=== PATIENT | female | born 1940 | race Caucasian/White ===

== ENCOUNTER 2018-10-23 09:40 | Day surgery (SDC) | payer MEDICARE, OTHER ==
[~2018-10-23 09:40] MED LIST: CEFAZOLIN 1 GM INJ; CEFAZOLIN 2 GM/50 ML (PMX) 50 ML IVPB
[2018-10-23 10:14] LABS: ADD MAN DIFF? NO
[2018-10-23 10:17] LABS: WHITE BLOOD COUNT 5.6 10^3/ul (4.8-10.8)
[2018-10-23 10:17] LABS: BASOPHILS % 0.7 % (0.0-2.0); EOSINOPHILS # 0.1 10^3/ul (0.0-0.5); EOSINOPHILS % 1.8 % (0.0-7.0); HEMATOCRIT 33.8 % (37.0-47.0); LYMPHOCYTES # 0.8 10^3/ul (0.8-2.9); LYMPHOCYTES % 14.6 % (15.0-51.0); MEAN CORPUSCULAR HEMOGLOBIN 31.4 pg (29.0-33.0); MEAN CORPUSCULAR HGB CONC 35.5 g/dl (32.0-37.0); MEAN CORPUSCULAR VOLUME 88.5 fl (82.0-101.0); MEAN PLATELET VOLUME 9.8 fl (7.4-10.4); MONOCYTE # 0.4 10^3/ul (0.3-0.9); NEUTROPHIL # 4.2 10^3/ul (1.6-7.5); NEUTROPHILS % 75.7 % (39.0-77.0); PLATELET COUNT 184 10^3/UL (140-415); RED BLOOD COUNT 3.82 10^6/ul (4.20-5.40); RED CELL DISTRIBUTION WIDTH 12.6 % (11.5-14.5)
[2018-10-23 10:35] LABS: INR 1.02; PROTIME 13.5 Sec (11.9-14.9); PT RATIO 1.1
[2018-10-23 10:37] LABS: PARTIAL THROMBOPLASTIN TIME 30.2 Sec (23.0-35.0)
[2018-10-23 10:39] LABS: ANION GAP 12 (5-13); BLOOD UREA NITROGEN 9 mg/dl (7-20); CARBON DIOXIDE 28 mmol/L (21-31); CREATININE 0.48 mg/dl (0.44-1.00); GLUCOSE 174 mg/dl (70-220); POTASSIUM 4.1 mmol/L (3.5-5.1)
[2018-10-23 10:44] LABS: CHLORIDE 92 mmol/L (97-110); SODIUM 132 mmol/L (135-144)
[2018-10-23 11:00] LABS: ADD UMIC NO; UR ASCORBIC ACID NEGATIVE (NEGATIVE); UR BILIRUBIN (Dip) NEGATIVE (NEGATIVE); UR BLOOD (Dip) NEGATIVE (NEGATIVE); UR CLARITY CLEAR (CLEAR); UR COLOR YELLOW (YELLOW); UR GLUCOSE (Dip) NEGATIVE (NEGATIVE); UR KETONES (Dip) NEGATIVE (NEGATIVE); UR LEUKOCYTE ESTERASE (Dip) NEGATIVE Leu/ul (NEGATIVE); UR NITRITE (Dip) NEGATIVE (NEGATIVE); UR SPECIFIC GRAVITY (Dip) 1.005 (1.003-1.030); UR TOTAL PROTEIN (Dip) NEGATIVE (NEGATIVE); UR UROBILINOGEN (Dip) NEGATIVE (NEGATIVE)
[2018-10-23] MEDS ORDERED: FENTAnyl 50 MCG/ML VIAL ×2 (12:18→12:32)
[2018-10-23] MEDS ORDERED: MIDAZOLAM 1 MG/ML 2 ML INJ (12:18)
[2018-10-23] MEDS ORDERED: DIPHENHYDRAMINE 50 MG INJ IV (13:00)
[2018-10-23] MEDS ORDERED: FENTAnyl 50 MCG/ML VIAL IV (13:00)
[2018-10-23] MEDS ORDERED: ONDANSETRON 4 MG INJ IV (13:00)
[2018-10-23] MEDS: LIDOCAINE 1% (MPF) 30 ML INJ (13:14)
== END 2018-10-23 14:06 | disposition home or self-care (01) ==
LOC: SDS 09:40
DX: I70.248 Atherosclerosis of native arteries of left leg with ulceration of other part of lower leg (principal); L97.829 Non-pressure chronic ulcer of other part of left lower leg with unspecified severity; I10 Essential (primary) hypertension; E11.9 Type 2 diabetes mellitus without complications; E78.00 Pure hypercholesterolemia, unspecified
CPT/HCPCS: 11043; 71045; 80048; 81003; 82962; 85025; 85610; 85730; 93005; 93970

== ENCOUNTER 2018-11-12 05:50 | Day surgery (SDC) | payer MEDICARE, OTHER ==
[2018-11-12] MEDS ORDERED: LIDOCAINE 1% (MPF) 30 ML INJ (06:53)
[2018-11-12] MEDS ORDERED: CEFAZOLIN 1 GM INJ (07:00)
[2018-11-12 07:07] LABS: ADD MAN DIFF? NO
[2018-11-12] MEDS ORDERED: MINERAL OIL LIGHT 10 ML VIAL (07:09)
[2018-11-12 07:16] LABS: WHITE BLOOD COUNT 4.2 10^3/ul (4.8-10.8)
[2018-11-12 07:16] LABS: BASOPHIL # 0.1 10^3/ul (0.0-0.1); BASOPHILS % 1.4 % (0.0-2.0); EOSINOPHILS # 0.1 10^3/ul (0.0-0.5); EOSINOPHILS % 2.4 % (0.0-7.0); HEMATOCRIT 31.4 % (37.0-47.0); HEMOGLOBIN 10.8 g/dl (12.0-16.0); LYMPHOCYTES # 0.7 10^3/ul (0.8-2.9); LYMPHOCYTES % 17.5 % (15.0-51.0); MEAN CORPUSCULAR HEMOGLOBIN 31.4 pg (29.0-33.0); MEAN CORPUSCULAR HGB CONC 34.4 g/dl (32.0-37.0); MEAN CORPUSCULAR VOLUME 91.3 fl (82.0-101.0); MEAN PLATELET VOLUME 9.9 fl (7.4-10.4); MONOCYTE # 0.5 10^3/ul (0.3-0.9); MONOCYTES % 11.4 % (0.0-11.0); NEUTROPHIL # 2.8 10^3/ul (1.6-7.5); NEUTROPHILS % 67.1 % (39.0-77.0); PLATELET COUNT 167 10^3/UL (140-415); RED BLOOD COUNT 3.44 10^6/ul (4.20-5.40); RED CELL DISTRIBUTION WIDTH 13.2 % (11.5-14.5)
[2018-11-12] MEDS ORDERED: MEPERIDINE 25 MG INJ IV (07:30)
[2018-11-12] MEDS ORDERED: LABETALOL HCL 20MG INJ IV (07:30)
[2018-11-12] MEDS ORDERED: hydrALAzine 20 MG INJ IV (07:30)
[2018-11-12] MEDS ORDERED: HYDROmorphONE 1 MG/5 ML IV SYRINGE IV ×3 (07:30)
[2018-11-12] MEDS ORDERED: ONDANSETRON 4 MG INJ IV (07:30)
[2018-11-12] MEDS ORDERED: DIPHENHYDRAMINE 50 MG INJ IV (07:30)
[2018-11-12] MEDS ORDERED: EPHEDrine SULFATE 50 MG/5 ML SYG IV (07:30)
[2018-11-12] MEDS ORDERED: FENTAnyl 50 MCG/ML VIAL (07:37)
[2018-11-12] MEDS ORDERED: PROPOFOL 20 ML (07:37)
[2018-11-12 07:40] LABS: ALANINE AMINOTRANSFERASE 21 IU/L (13-69); ALBUMIN 3.7 g/dl (3.3-4.9); ALBUMIN/GLOBULIN RATIO 1.42; ALKALINE PHOSPHATASE 79 IU/L (42-121); ANION GAP 9 (5-13); ASPARTATE AMINO TRANSFERASE 34 IU/L (15-46); BILIRUBIN,INDIRECT 0.3 mg/dl (0-1.1); BILIRUBIN,TOTAL 0.3 mg/dl (0.2-1.3); BLOOD UREA NITROGEN 12 mg/dl (7-20); CALCIUM 9.7 mg/dl (8.4-10.2); CARBON DIOXIDE 26 mmol/L (21-31); CHLORIDE 101 mmol/L (97-110); CREATININE 0.62 mg/dl (0.44-1.00); GLUCOSE 192 mg/dl (70-220); POTASSIUM 3.9 mmol/L (3.5-5.1); SODIUM 136 mmol/L (135-144); TOTAL PROTEIN 6.3 g/dl (6.1-8.1)
[2018-11-12] MEDS: LIDOCAINE 1% (MPF) 30 ML INJ INJ (07:40)
[2018-11-12] MEDS ORDERED: MIDAZOLAM 1 MG/ML 2 ML INJ (07:40)
== END 2018-11-12 09:46 | disposition home or self-care (01) ==
LOC: SDS 05:50
DX: I70.248 Atherosclerosis of native arteries of left leg with ulceration of other part of lower leg (principal); L97.829 Non-pressure chronic ulcer of other part of left lower leg with unspecified severity; I10 Essential (primary) hypertension; E11.9 Type 2 diabetes mellitus without complications
CPT/HCPCS: 11043; 80053; 82962; 85025; 88305; 93005

== ENCOUNTER 2018-11-27 09:39 | Day surgery (SDC) | payer MEDICARE, OTHER ==
[2018-11-27] MEDS: VANCOMYCIN 1 GM 250 ML IVPB (10:35)
[2018-11-27] MEDS: ACETAMINOPHEN 500 MG TAB PO (10:35)
[2018-11-27] MEDS ORDERED: HYDROmorphONE 1 MG/5 ML IV SYRINGE IV (12:00)
[2018-11-27] MEDS ORDERED: FENTAnyl 50 MCG/ML VIAL IV ×2 (12:00)
[2018-11-27] MEDS ORDERED: OXYCODONE/ACETAMINOPHEN (5/325) TAB PO ×2 (12:00)
[2018-11-27] MEDS ORDERED: DIPHENHYDRAMINE 50 MG INJ IV (12:00)
[2018-11-27] MEDS ORDERED: LABETALOL HCL 20MG INJ IV (12:00)
[2018-11-27] MEDS ORDERED: morphine (1 MG/ML) 10ML SYRINGE IV (12:00)
[2018-11-27] MEDS ORDERED: MEPERIDINE 25 MG INJ IV (12:00)
[2018-11-27] MEDS ORDERED: ALBUTEROL 0.083% (NEB) 2.5 MG/3 ML AMP HHN (12:00)
[2018-11-27] MEDS ORDERED: FENTAnyl 50 MCG/ML VIAL (12:04)
[2018-11-27] MEDS: LIDOCAINE 1% (MDV) 20 ML INJ INJ (12:15)
[2018-11-27] MEDS ORDERED: LIDOCAINE 1% (MPF) 30 ML INJ (12:23)
[2018-11-27] MEDS: HYDROmorphONE 1 MG/5 ML IV SYRINGE IV (13:38)
[2018-11-27] MEDS: ONDANSETRON 4 MG INJ IV (13:39)
== END 2018-11-27 14:46 | disposition home or self-care (01) ==
LOC: SDS 09:39
DX: I70.248 Atherosclerosis of native arteries of left leg with ulceration of other part of lower leg (principal); L97.829 Non-pressure chronic ulcer of other part of left lower leg with unspecified severity; I70.201 Unspecified atherosclerosis of native arteries of extremities, right leg; E11.9 Type 2 diabetes mellitus without complications; I10 Essential (primary) hypertension; E78.00 Pure hypercholesterolemia, unspecified
CPT/HCPCS: 11043; 82962